=== PATIENT | male | born 1995 | race African-American/Black ===

== ENCOUNTER 2017-08-10 10:03 | Emergency (ER) | payer SELFPAY ==
[~2017-08-10] VITALS: Ht 185.4 cm; Wt 65.0 kg
[2017-08-10 12:17] LABS: CLARITY URINE CLEAR (CLEAR); COLOR URINE YELLOW (YELLOW); KETONES URINE NEGATIVE (NEGATIVE); LEUKOCYTE ESTERASE URINE NEGATIVE (NEGATIVE); NITRITE URINE NEGATIVE (NEGATIVE); OCCULT BLOOD URINE NEGATIVE (NEGATIVE); PH URINE 8.5 (4.5-8.0); PROTEIN URINE NEGATIVE (NEGATIVE); SPECIFIC GRAVITY URINE 1.008 (1.005-1.030); UROBILINOGEN URINE 0.2 E.U./dL (0.2-1.0)
[2017-08-10 13:00] VITALS: BP 131/88
== END 2017-08-10 13:02 | disposition home or self-care (01) ==
LOC: ER 10:15
DX: R36.1 Hematospermia (principal)
CPT/HCPCS: 81003; 99283